=== PATIENT | female | born 1950 | race Caucasian/White ===

== ENCOUNTER → 2018-06-27 | Outpatient (CLI) | payer MEDICARE ==
[2018-06-27 13:35] LABS: BASOPHILS ABSOLUTE AUTO 0.02 K/mm3 (0.00-0.23); BASOPHILS PERCENT AUTO 0 % (0-2); EOSINOPHILS ABSOLUTE AUTO 0.01 K/mm3 (0.00-0.68); EOSINOPHILS PERCENT AUTO 0 % (0-6); Hematocrit 38.7 % (33.0-51.0); Hemoglobin 13.5 g/dL (11.5-16.0); IMMATURE GRAN ABSOLUTE AUTO 0.03 K/mm3 (0.00-0.10); IMMATURE GRAN PERCENT AUTO 0 % (0-1); LYMPHOCYTES ABSOLUTE AUTO 1.63 K/mm3 (0.84-5.20); LYMPHOCYTES PERCENT AUTO 19 % (21-46); MONOCYTES PERCENT AUTO 6 % (4-13); Mean Corpuscular HGB 31.9 pg (26.0-34.0); Mean Corpuscular HGB Conc 34.9 g/dL (31.5-36.5); Mean Corpuscular Volume 92 fL (80-100); Mean Platelet Volume 11.4 fL (9.1-12.4); NEUTROPHILS ABSOLUTE AUTO 6.62 K/mm3 (1.96-9.15); NEUTROPHILS PERCENT AUTO 75 % (41-73); Platelet Count 258 K/mm3 (150-400); RDW Coefficient Variation 13.2 % (11.7-14.2); Red Blood Cell Count 4.23 M/mm3 (3.80-5.20); White Blood Cell Count 8.81 K/mm3 (4.00-11.30)
[2018-06-27 13:46] LABS: Bilirubin, Total 0.5 mg/dL (0.1-1.0); Bun/Creatinine Ratio 15.6 (12.0-20.0); Calcium, Blood 10.1 mg/dL (8.5-10.1); Creatinine, Blood 0.96 mg/dL (0.40-1.00); Globulin, Blood 3.9 g/dL (2.2-4.0); Potassium, Blood 3.6 mmol/L (3.5-5.5); Total Protein, Blood 7.9 g/dL (6.4-8.2)
== END ==
LOC: LAB SHORT 13:31 → LAB EV 13:31
PROVIDERS: Physician Assistant
DX: R10.9 Unspecified abdominal pain (principal)
CPT/HCPCS: 80053; 83690; 85025

== ENCOUNTER 2025-09-12 13:23 | Inpatient (IN) | payer MEDICARE ==
[~2025-09-12] VITALS: Ht 172.7 cm; Wt 59.7 kg
[2025-09-12] MEDS ORDERED: Ondansetron HCl 2 MG / ML 2ML Vial IV ONE (13:50)
[2025-09-12] MEDS ORDERED: NS 1,000 ML IV SCH ×4 (13:50→18:25)
[2025-09-12] MEDS ORDERED: Magnesium Sulf 2 GM/Water 50ML 50 ML IV ONE (14:15)
[2025-09-12] MEDS ORDERED: Ketorolac Tromethamine 30mg Vial IV ONE (14:15)
[2025-09-12 14:25] LABS: BASOPHILS ABSOLUTE AUTO 0.03 K/mm3 (0.00-0.23); BASOPHILS PERCENT AUTO 0 % (0-2); EOSINOPHILS ABSOLUTE AUTO 0.00 K/mm3 (0.00-0.68); EOSINOPHILS PERCENT AUTO 0 % (0-6); Hematocrit 43.5 % (33.0-51.0); Hemoglobin 14.9 g/dL (11.5-16.0); IMMATURE GRAN ABSOLUTE AUTO 0.04 K/mm3 (0.00-0.10); IMMATURE GRAN PERCENT AUTO 0 % (0-1); LYMPHOCYTES ABSOLUTE AUTO 2.38 K/mm3 (0.84-5.20); LYMPHOCYTES PERCENT AUTO 19 % (21-46); MONOCYTES ABSOLUTE AUTO 1.22 K/mm3 (0.16-1.47); MONOCYTES PERCENT AUTO 10 % (4-13); Mean Corpuscular HGB Conc 34.3 g/dL (31.5-36.5); Mean Corpuscular Volume 89 fL (80-100); NEUTROPHILS ABSOLUTE AUTO 8.68 K/mm3 (1.96-9.15); NEUTROPHILS PERCENT AUTO 70 % (41-73); NRBC ABSOLUTE 0.00 K/mm3 (0.00-0.02); NRBC Auto 0.0 /100 WBC (0.0-0.2); Platelet Count 321 K/mm3 (150-400); RDW Coefficient Variation 13.6 % (11.7-14.2); RDW Standard Deviation 44.2 fL (35.1-46.3)
[2025-09-12 14:28] LABS: Alanine Aminotransfer (ALT/SGP 21.0 U/L (12-78); Albumin, Blood 4.3 g/dL (3.4-5.0); Albumin/Globulin Ratio 1.1 (0.8-1.8); Anion Gap 16.0 mmol/L (3-11); Aspartate Aminotrans (AST/SGOT 13.0 U/L (12-37); Bilirubin, Total 0.9 mg/dL (0.1-1.0); Blood Urea Nitrogen 17.0 mg/dL (8-24); CO2, Blood 25.0 mmol/L (21-32); Calcium, Blood 10.1 mg/dL (8.5-10.1); Chloride, Blood 98.0 mmol/L (98-108); Creatinine, Blood 0.88 mg/dL (0.40-1.00); Globulin, Blood 3.8 g/dL (2.2-4.0); Glucose, Blood 123.0 mg/dL (70-99); Potassium, Blood 3.1 mmol/L (3.5-5.5); Sodium, Blood 136.0 mmol/L (136-145); Total Protein, Blood 8.1 g/dL (6.4-8.2)
[2025-09-12] MEDS ORDERED: Piperacillin/Tazobactam Sod 3.375 GM in NS 100 ML IV ONE (16:45)
[2025-09-12] MEDS ORDERED: Metoclopramide HCl 5MG / ML 2ML Vial IV ONE (17:05)
[2025-09-12] MEDS ORDERED: FentaNYL Citrate 50 MCG/ML 2 ML Injection IV PRN (17:10)
[2025-09-12] MEDS ORDERED: Ondansetron HCl 2 MG / ML 2ML Vial IV PRN (17:10)
[2025-09-12] MEDS ORDERED: FLU VACC TS2025(65UP)/MF59C/PF 45 MCG/0.5 ML SYRINGE IM SCH (17:15)
[2025-09-12 18:30] VITALS: BP 113/77
[2025-09-12 20:36] VITALS: BP 126/70
[2025-09-12 23:30] VITALS: BP 129/87
[2025-09-13] MEDS ORDERED: Piperacillin/Tazobactam Sod 4.5 GM in NS 100 ML IV SCH
[2025-09-13 03:41] VITALS: BP 117/68
[2025-09-13 04:00] LABS: BASOPHILS ABSOLUTE AUTO 0.04 K/mm3 (0.00-0.23); BASOPHILS PERCENT AUTO 1 % (0-2); EOSINOPHILS ABSOLUTE AUTO 0.08 K/mm3 (0.00-0.68); EOSINOPHILS PERCENT AUTO 1 % (0-6); Hematocrit 31.8 % (33.0-51.0); Hemoglobin 10.7 g/dL (11.5-16.0); IMMATURE GRAN ABSOLUTE AUTO 0.01 K/mm3 (0.00-0.10); IMMATURE GRAN PERCENT AUTO 0 % (0-1); LYMPHOCYTES ABSOLUTE AUTO 2.08 K/mm3 (0.84-5.20); LYMPHOCYTES PERCENT AUTO 33 % (21-46); MONOCYTES ABSOLUTE AUTO 0.66 K/mm3 (0.16-1.47); MONOCYTES PERCENT AUTO 11 % (4-13); Mean Corpuscular HGB Conc 33.6 g/dL (31.5-36.5); Mean Corpuscular Volume 93 fL (80-100); NEUTROPHILS ABSOLUTE AUTO 3.38 K/mm3 (1.96-9.15); NEUTROPHILS PERCENT AUTO 54 % (41-73); NRBC ABSOLUTE 0.00 K/mm3 (0.00-0.02); NRBC Auto 0.0 /100 WBC (0.0-0.2); Platelet Count 199 K/mm3 (150-400); RDW Coefficient Variation 14.1 % (11.7-14.2); RDW Standard Deviation 48.1 fL (35.1-46.3)
[2025-09-13 05:00] LABS: Alanine Aminotransfer (ALT/SGP 12.0 U/L (12-78); Albumin, Blood 2.8 g/dL (3.4-5.0); Albumin/Globulin Ratio 1.1 (0.8-1.8); Anion Gap 9.0 mmol/L (3-11); Aspartate Aminotrans (AST/SGOT 10.0 U/L (12-37); Bilirubin, Total 0.8 mg/dL (0.1-1.0); Blood Urea Nitrogen 13.0 mg/dL (8-24); CO2, Blood 25.0 mmol/L (21-32); Chloride, Blood 109.0 mmol/L (98-108); Creatinine, Blood 0.85 mg/dL (0.40-1.00); Globulin, Blood 2.5 g/dL (2.2-4.0); Glucose, Blood 99.0 mg/dL (70-99); Potassium, Blood 2.9 mmol/L (3.5-5.5); Sodium, Blood 140.0 mmol/L (136-145)
[2025-09-13 05:03] LABS: Calcium, Blood 7.8 mg/dL (8.5-10.1); Total Protein, Blood 5.3 g/dL (6.4-8.2)
[2025-09-13] MEDS ORDERED: NS 250 ML IV PRN (05:55)
--- NOTE | 2025-09-13 06:18 | NUR ---
SHIFT SUMMARY PT IS A&O X4, MOVING ALL EXTREMITIES WITH PURPOSE, OBEYS COMMANDS, REPOSITIONING SELF IN BED, SBA TO BATHROOM, PT REPORTS USING A WALKING STICK AT HOME. CONTINUOUS SPO2, SPO2 GREATER THAN 92% RA, PT DENIES SOB T/O THIS SHIFT. CONTINUOUS TELE MONITORING, SINUS 70-80 S, BP STABLE WITH MAP GREATER THAN 65, CAP REFILL WNL, PULSES PRESENT T/O, PT DENIES CHEST P/P T/O THIS SHIFT. BOWEL TONES PRESENT IN ALL 4Q, PT DENIES FEELINGS OF NAUSEA OR CONSTIPATION, DENIES PAIN. VOIDING IND, URINE YELLOW. BED LOWEST POSITION, CALL LIGHT IN REACH, AWAITING TO GIVE REPORT TO ONCOMING RN
[2025-09-13 07:43] VITALS: BP 148/67
--- NOTE | 2025-09-13 09:17 | NUR ---
AM NOTE: PATIENT ALERT AND ORIENTED X4. DENIES PAIN AT THIS TIME. COMPLAINS OF INTERMIT ABDOMINAL CRAMPING RELATED TO NEEDING TO GO TO THE BATHROOM. MOVING ALL EXTREMITIES. UP WITH SBA TO BATHROOM. MEDICAL STATUS WITH TELE. SINUS RHYTHM WITH PACS. HR 70-90'S. DENIES CHEST PAIN/PRESSURE/PALPITATIONS. SBP 140'S. NO EDEMA NOTED. SCD'S IN PLACE. ON ROOM AIR, LUNG SOUNDS CLEAR. DENIES SOB/COUGH. BOWEL TONES PRESENT. CLEAR LIQUID DIET ORDERS IN PLACE. PATIENT DRINKING WATER AT THIS TIME. SKIN PALE WITH SMALL PEA SIZED SCAB TO COCCYX AND SCATTERED BRUISING. CHUNG AUGUST AND JAKE TO BEDSIDE THIS AM. PLAN FOR OUTPATIENT COLONOSCOPY AND TO SET UP PCP WITH ANILA. CALL LIGHT IN REACH. DENIES NEEDS AT THIS TIME.
[2025-09-13 11:04] VITALS: BP 139/75
[2025-09-13] MEDS ORDERED: Piperacillin/Tazobactam Sod 4.5 GM ONE (11:29)
--- NOTE | 2025-09-13 14:24 | NUR ---
TRANSFER TO MEDICAL. NO ACUTE CHANGES. REPORT GIVEN TO MARISEL VASQUEZ. PATIENT REMAINS ALERT AND ORIENTED. ON TELE. VITAL SIGNS STABLE. POTASSIUM INFUSING. AT BEDSIDE. ECHO RESULTS PENDING. TOLERATING CLEAR LIQUID DIET.
[2025-09-13 14:55] VITALS: BP 147/79
[2025-09-13 15:17] VITALS: BP 130/91
--- NOTE | 2025-09-13 16:33 | NUR ---
TRANSFER NOTE PT IS A TRANSFER FROM PCU. THIS RN GOT REPORT ON PT FROM DOUBLING MACHINE OPERATOR IN PCU, PT A&OX4. PT ADMITTED DUE TO ACUTE DIVERTICULITIS. PT ORIENTED TO UNIT/CALL LIGHT/FALL PRECAUTIONS. PT REPORTED NO SOB/CHEST PAIN/GEN PAIN. PT IS SBA WITH LINES. POTASSIUM IV INFUSION CONTINUED ON TRANSFER. PT ON TELE, TELE NOTIFIED ON TRANSFER, NO REPORTS NOTED. PT REPORTS NO NAUSEA AND NO BM IN 5 DAYS. PT TOLERATING CLEAR LIQUID. PT WILL D/C WITH ZIO PATCH AND GET COLONOSCOPY PER DR. WILKES. PT IN BED, BED IN LOWEST POSITION, BED LOCKED, CALL LIGHT IN REACH.
[2025-09-13 20:45] VITALS: BP 122/62
[2025-09-14 00:26] VITALS: BP 123/62
--- NOTE | 2025-09-14 05:22 | NUR ---
SHIFT SUMMARY 75 YR F TRANSFERED TO MEDICAL FLOOR ON 09/13/25. FULL CODE. NO ACUTE CHANGES THIS SHIFT. PT HAS HAD NO C/O PAIN OR DISCOMFORT THIS SHIFT. DENIES CHEST PAIN OR PRESSURE WELL. PT APPEARS TO HAVE RESTED COMFORTABLY THROUGHOUT THE NIGHT. NO ADVERESE EVENTS REPORTED BY [employer]. PT IS ON CLEAR LIQUIDS. SHE IS A&O X 4 AND ABLE TO MAKE HER NEEDS KNOWN. BED IN LOW POSITION AND CALL LIGHT IN REACH.
[2025-09-14 05:48] VITALS: BP 131/88
[2025-09-14 07:54] LABS: Hematocrit 35.3 % (33.0-51.0); Hemoglobin 11.9 g/dL (11.5-16.0); Mean Corpuscular HGB Conc 33.7 g/dL (31.5-36.5); Mean Corpuscular Volume 94 fL (80-100); NRBC ABSOLUTE 0.00 K/mm3 (0.00-0.02); NRBC Auto 0.0 /100 WBC (0.0-0.2); Platelet Count 198 K/mm3 (150-400); RDW Coefficient Variation 14.1 % (11.7-14.2); RDW Standard Deviation 48.8 fL (35.1-46.3)
[2025-09-14 07:58] VITALS: BP 141/73
[2025-09-14 09:05] LABS: Albumin, Blood 3.3 g/dL (3.4-5.0); Anion Gap 7 mmol/L (3-11); Blood Urea Nitrogen 10 mg/dL (8-24); CO2, Blood 26 mmol/L (21-32); Calcium, Blood 8.6 mg/dL (8.5-10.1); Chloride, Blood 108 mmol/L (98-108); Creatinine, Blood 0.79 mg/dL (0.40-1.00); Glucose, Blood 97 mg/dL (70-99); Phosphorus, Blood 2.2 mg/dL (2.5-4.9); Potassium, Blood 3.5 mmol/L (3.5-5.5); Sodium, Blood 137 mmol/L (136-145)
[2025-09-14 10:54] VITALS: BP 141/74
[2025-09-14] MEDS ORDERED: Potassium Chloride 10 Meq Tablet SA PO ONE (12:00)
[2025-09-14] MEDS ORDERED: METO25ER PO (13:48)
[2025-09-14] MEDS ORDERED: AMOCLA875 PO (13:49)
--- NOTE | 2025-09-14 15:21 | NUR ---
DISCHARGE PT DISCHARGED HOME WITH SPOUSE AFTER APPLICATION OF ZIO PATCH. PT BROUGHT TO [facility] BY WHEELCHAIR. PRESCRIPTIONS FAXED TO [facility], EDUCATION PROVIDED, ALL BELONGINGS WITH PT.
== END 2025-09-14 15:00 | disposition home or self-care (01) | DRG 872 ==
LOC: ER 13:23 → PCU 16:59 → MEDS 09-13 14:22
PROVIDERS: Student in an Organized Health Care Education/Training Program; ADMIT Internal Medicine
DX: A41.9 Sepsis, unspecified organism (principal); K57.32 Diverticulitis of large intestine without perforation or abscess without bleeding; I48.91 Unspecified atrial fibrillation; K21.9 Gastro-esophageal reflux disease without esophagitis; I45.81 Long QT syndrome; E87.6 Hypokalemia; E86.0 Dehydration; R63.4 Abnormal weight loss; K59.00 Constipation, unspecified; I10 Essential (primary) hypertension; Z68.21 Body mass index [BMI] 21.0-21.9, adult
CPT/HCPCS: 36415; 74177; 80053; 80069; 83605; 83690; 83735; 83880; 84443; 85025; 85027; 93005; 93010; 93246; 93306; 96365-59; 96366; 96368; 96375; 99285-25; A9270; J1885; J2405; J2543; J2765; J3475; J3480; J7030; J7050; Q9967